=== PATIENT | female | born 1965 | race Caucasian/White ===

== ENCOUNTER → 2016-06-16 | Outpatient (CLI) | payer BC ==
[~2016-06-16] MED LIST: CLR10 PO; DIPH25CA65 PO; FLUT0.15 NAE; PANT40TA PO; TRAM-10 PO; TRAS440I2 IV; WARF5TAB90 PO
[2016-06-16 15:01] VITALS: BP 103/67; PULSE 81; TEMP 36.9; O2SAT 95
--- NOTE | 2016-06-16 16:09 | Radiation Oncology Follow-Up ---
Radiation Oncology Follow-Up Date of Visit Jun 16, 2016. Reason For Visit One-month follow-up and cancer survivorship care plan Radiation Completion Date 05/13/16 Diagnosis (1) Breast cancer Status: Resolved Onset Date: 07/06/2015 Histology Subtype: ductal Stage: lll (A) Permanent Comment: Left breast discomfort Abnormal mammogram revealing left upper outer quadrant masses Status post ultrasound-guided biopsies revealing infiltrating ductal carcinoma upper outer quadrant Positive left axillary lymph node biopsy Estrogen receptor negative, progesterone receptor negative, HER-2/mahogany positive Clinical stage T3 N1M0 by MRI Status post chemotherapy with TCH plus Pertuzumab Ongoing treatment with Herceptin Status post bilateral mastectomies with sentinel lymph node biopsy on the left 12/15/2015 Placement of tissue expanders Stage ypT0 ypN0 M0 Status post completion of radiation therapy 05/13/2016 received 6240 cGy Last Edited By: Jaycee Pardo on May 26, 2016 13:51 History of Present Illness Ms. Saha is a 50 year-old female with a remote family history of breast cancer. The patient's paternal grandmother was diagnosed with bilateral breast cancer treated with bilateral mastectomies and chemotherapy and radiation. Her mother from heart complications and she has 3 sisters 2 surviving without history of left breast cancer. She has noted however a sensation of discomfort in the left chest wall region for several years. Mammogram from 09/02/2011, bilateral screening, showed no mammographic evidence of malignancy. Repeat bilateral screening mammogram on 09/03/2012 also revealed no mammographic evidence of malignancy. On 09/05/2013 bilateral digital screening mammograms were performed. An indeterminant asymmetry was appreciated in the left breast with additional views recommended. A unilateral left digital diagnostic mammogram was performed on 09/12/2013. An oval high density asymmetry was again noted in the left breast at the 1:00 posterior depth that was felt to have decreased in size. A repeat in one year was recommended. The patient states that at this point she was becoming frustrated and delayed her recommended repeat screening mammogram scheduled for August 2014. Ultimately she did agree to proceed with bilateral digital screening mammograms on 06/25/2015. This unfortunately showed a newly visualized 1.0 cm mass in the left upper outer quadrant as well as a possible 0.8 cm mass seen more anteriorly on the cc views. Spot compression views and ultrasound were recommended. On 06/30/2015 patient underwent a unilateral left digital diagnostic mammogram and targeted left breast ultrasound. This showed a 1.9 x 2.3 cm cluster of pleomorphic microcalcifications in the upper outer middle one third of the left breast which were new compared to prior mammograms. The total synthesis Spot compression views demonstrated persistence of a dominant 1.1 cm mass in the left breast 3 o'clock position. Real time ultrasound was performed of the left upper outer quadrant. At the 2 o'clock position 1 cm from the nipple was noted a rounded hypoechoic solid mass measuring 0.8 x 0.9 x 0.9 cm. A second hypoechoic solid mass deep to the first at the 3 o'clock position of the left breast was noted to centimeters in the nipple measuring 1.6 x 0.8 x 1.3 cm. An ill-defined hypoechoic tissue was noted at the 3 o'clock position of the left breast 3 cm from the nipple measuring 1.5 x 3.0 cm. Evaluation of the left axilla revealed an enlarged lymph node with thickened cortex measuring 1.6 cm in length suspicious for metastatic disease. Ultrasound core biopsy was recommended. On 07/06/2015 patient underwent an ultrasound-guided core biopsy of the left breast mass 2 o'clock position, calcifications hypoechoic tissues and abnormal left axillary lymph node. The biopsy of the breast mass at the 2 o'clock position confirmed an infiltrating ductal carcinoma Artem grade 3 of 3 without lymphovascular invasion. Estrogen receptors were negative (0%). Progesterone receptors were negative (0%). HER-2/mahogany overexpression was +3+ (>90%, strong). Biopsy of the adjacent calcifications hypoechoic tissue also revealed infiltrating ductal carcinoma Benld grade 3 with evidence of high-grade DCIS solid with focal noncontributory necrosis. Biopsy of the left axillary lymph node revealed metastatic carcinoma with similar histologic features to that of the core breast biopsy. Case: [id number]. The patient was seen on 07/15/[address] Martha Ashford for surgical evaluation and discussion. Her examination of the left breast revealed a near 3-4 cm mass starting at the 2 o'clock position extending to the 3 o'clock position. This was firm non-fixed with thickening further laterally extending into the axillary tail measuring [address] Ashford that the patient would benefit from neoadjuvant chemotherapy. She recommended additional staging procedures to include a PET/CT scan and bilateral breast MRIs. She discussed possible surgical options and the patient expressed a desire to proceed with bilateral mastectomies at that time. On 07/22/2015 patient underwent a PET/CT scan. This showed no metabolically active pulmonary nodules. A 2.6 x 2.4 cm FDG avid irregular mass was noted in the left breast with biopsy clip present and a maximum SUV of 15.3. Superior to that lesion was a 3.6 x 2.0 cm asymmetric oval mass with SUV max of 2.5. Multiple hypermetabolic left axillary and subpectoral lymph nodes were appreciated with the largest measuring 1.8 x 1.3 cm with the most FDG avid maximum of 15.0 has a biopsy clip next to it. There was no metabolically active hilar and mediastinal adenopathy. Abdomen and pelvis, gastrointestinal system system and musculoskeletal systems were unremarkable. An FDG avid anterior uterine myometrial mass without obvious CT correlate was seen on the unenhanced CT scan. On 07/23/2015 patient underwent bilateral breast MRIs. The right breast was without suspicious abnormalities. The left breast revealed a large area of segmental he does attributed masslike and non-mass like enhancement involving the left lower outer and a lesser degree the left upper outer quadrant extending from approximately 2 to 5 o'clock position. The extent of enhancement measures up to 9.5 cm in AP dimension with the abnormal enhancement extending up to and possibly involving the nipple. The enhancement demonstrates a mixed kinetic pattern including suspicious washout kinetics. The 2 adjacent biopsy markers were identified. There was mild left rest skin thickening mostly involving the inferior breast. Multiple abnormally enlarged lymph nodes are seen within the left axilla consistent with sosa metastasis. No obvious right axillary adenopathy appreciated no abnormal internal mammary lymph nodes are seen. Chest wall structures were negative. The patient was seen by Dr. Cho on 07/24/2014. She agreed with the recommended neoadjuvant chemotherapy consisting of Taxotere, Carboplatin,Pertuzumab and Herceptin.. Patient was set up to see a audio production engineer to evaluate the uterus. The patient had had previous uterine ablations. A mass measuring 3.7 x 3.2 x 3.4 cm was appreciated which had increased in size since previous studies in 2007. Plan repeat scan in 6 months. A bone scan was performed on 2015. This showed no evidence of metastatic disease. The patient has started her systemic chemotherapy and is presently in cycle 2. She did have 1 week of the symptoms but otherwise is tolerating her systemic therapy as anticipated. She is scheduled to see Dr. Tarango today for evaluation and discussion of the role of breast reconstruction following her planned bilateral mastectomy. He will discuss with her the options of tissue expansion versus TRAM flap. We were also asked to see her in referral to discuss with her the potential and likely role of adjuvant radiation following the completion of her chemotherapy and surgery. She continue follow-up with Dr. Cho and underwent systemic chemotherapy. She completed the [facility] treatment with perjeta. She now continues on Herceptin every 3 weeks. She underwent the bilateral mastectomies 12/15/2015. She had a left sentinel lymph node biopsy. This revealed no residual carcinoma. There was no cancer in the 2 lymph nodes that were evaluated. She does have arthralgias in association to Herceptin. She is being evaluated with a bone scan. Following the bilateral mastectomy she had immediate tissue expanders. These have now completely been expanded. There is some mild discomfort in the left side following the expansion. She's noticed no redness or tenderness. She noted no masses or change of the axilla. She's had no swelling of her arm. She is here today for follow-up and CT. She underwent radiation therapy. Treatment was completed 05/13/2016. She received 6240 cGy. Interim History She has been doing well in regards to the irritation of her skin at the end of treatment. This has steadily improved and healed. She's been using vitamin E oil. She unfortunately developed a clot near her port. She is on anticoagulation therapy. She feels this is now getting better regulated. She does have discomfort in her shoulder and arm from the clot. The swelling that she has had is mostly been in the shoulder and upper arm. She has not had lower arm swelling or swelling of her hand. She has been seen and followed up with her plastic surgeon. She is going to be having the tissue expanders removed and placement of permanent implants. She is also going to be having removal of her port. There has been discussion over a more invasive procedure. She is opting for implants. Allergies Coded Allergies: Codeine (Verified Allergy, Severe, chest tightness, 04/26/16) Morphine (Verified Allergy, Intermediate, Chest Tightness , 04/26/16) Home Medications Scheduled Trastuzumab (Herceptin), IV q3 weeks Warfarin Sodium (Coumadin), 5 MG PO DAILY Scheduled PRN Diphenhydramine Hcl (Benadryl Allergy), 25 MG PO UD PRN for ALLERGIC REACTION Loratadine (Claritin), 10 MG PO DAILY PRN for ALLERGIES Tramadol (Ultram), 50 MG PO TID PRN for Pain Review of Systems Gastrointestinal: Symptoms: WNL Oral: Symptoms: No Problems Respiratory: Symptoms: WNL Urinary: Symptoms: WNL Skin: Symptoms: No Problems Breast: Right Upper Arm Measurement: 33.7 Right Mid Arm Measurement: 23.5 Right Wrist Measurement: 15.1 Left Upper Arm Measurement: 34.8 Left Mid Arm Measurement: 22.9 Left Wrist Measurement: 14.7 Arm Dominence: Right Physical Exam Vital Signs Date Time Temp Pulse Resp B/P Pulse Ox O2 Delivery O2 Flow Rate FiO2 06/16/16 15:01 36.9 81 16 103/67 95 Pain: Patient Pain Scale: 0 - 10 Initial Pain Intensity: 0.0 Fatigue: None General Appearance: no apparent distress Eyes: normal inspection, EOMI ENT: normal ENT inspection, hearing grossly normal Neck: no adenopathy Respiratory/Chest: lungs clear, no respiratory distress, no accessory muscle use Breast: Examination of the chest reveals bilateral tissue expanders. On the left there is resolving hyperpigmentation. There is mild dryness of the skin. There are no masses or tenderness no axillary adenopathy. There is no cording in the pectoralis minor area she has good range of motion of the shoulder. There is no axillary adenopathy. She has no skin retractions. The right tissue toy stuffer revealed no masses or tenderness and no axillary adenopathy. Cardiovascular: regular rate, rhythm, no gallop, no murmur Abdomen: non tender, soft Extremities: no pedal edema Neurologic/Psychiatric: no motor/sensory deficits, alert, normal mood/affect Skin: warm/dry Lymphatic: no adenopathy Laboratory Studies Test 03/23/16 19:00 White Blood Count 4.56 K/uL (4.8-10.8) Red Blood Count 3.80 M/uL (4.2-5.4) Hemoglobin 11.3 g/dl (12.0-16.0) Hematocrit 34.5 % (37-47) Mean Corpuscular Volume 90.8 fL (80-100) Mean Corpuscular Hemoglobin 29.7 pg (25-34) Mean Corpuscular Hemoglobin Concent 32.8 g/dl (32-36) Platelet Count 218 K/uL (130-400) Mean Platelet Volume 8.8 fL (7.4-10.4) Neutrophils (%) (Auto) 46.0 % Lymphocytes (%) (Auto) 40.4 % Monocytes (%) (Auto) 10.1 % Eosinophils (%) (Auto) 3.1 % Basophils (%) (Auto) 0.4 % Neutrophils # (Auto) 2.10 K/uL (1.4-6.5) Lymphocytes # (Auto) 1.84 K/uL (1.2-3.4) Monocytes # (Auto) 0.46 K/uL (0.11-0.59) Eosinophils # (Auto) 0.14 K/uL (0-0.5) Basophils # (Auto) 0.02 K/uL (0-0.2) RDW Standard Deviation 42.0 fL (36.4-46.3) RDW Coefficient of Variation 12.5 % (11.5-14.5) Immature Granulocyte % (Auto) 0.0 % Immature Granulocyte # (Auto) 0.00 K/uL (0.00-0.02) Thyroid Stimulating Hormone (TSH) 2.060 uIu/ml (0.300-4.500) Assessment & Plan Plan: Continue regular follow-up with her primary care physician, Dr. Ashford, and Dr. Cho. She has an appointment with the audio production engineer today for regular checkup. She is on anticoagulation for the DVT. Recheck laboratory studies and scanning per Dr. Cho. Today we completed a cancer survivorship care plan. A copy of the document was given to the patient. She was given a cancer survivorship booklet. She'll be following up with the plastic surgeon in regards to placement of the breast implants. We asked her to return to our office in 6 months. She may call if she has any questions or concerns in the interim. Total Time In Follow-Up I spent 20 minutes speaking to the patient and performing examination. I spent 20 minutes reviewing information, preparing the survivorship document, and completing this note. Copy To Osvaldo Romero MD; Martha Ashford MD; Judith Cho MD Problem Qualifiers (1) Breast cancer: Breast location: upper outer quadrant of breast Patient gender: female Laterality: left Qualified Codes: C50.412 - Malignant neoplasm of upper- outer quadrant of left female breast
== END | disposition home or self-care (01) ==
LOC: C.ONC 14:50
PROVIDERS: ATTEND Radiology Radiation Oncology
DX: Z08 Encounter for follow-up examination after completed treatment for malignant neoplasm (principal); Z92.3 Personal history of irradiation; Z85.3 Personal history of malignant neoplasm of breast

== ENCOUNTER → 2016-06-22 | Outpatient (CLI) | payer BC | END | disposition home or self-care (01) | LOC: C.PAPS 10:13 | PROVIDERS: ATTEND Obstetrics & Gynecology | DX: Z01.419 Encounter for gynecological examination (general) (routine) without abnormal findings (principal); N95.2 Postmenopausal atrophic vaginitis ==

== ENCOUNTER 2016-11-14 13:03 | Emergency (ER) | payer BC ==
[~2016-11-14] VITALS: Ht 154.9 cm; Wt 70.0 kg
[~2016-11-14 13:03] MED LIST changes: -FLUT0.15 NAE; -PANT40TA PO
[2016-11-14] MEDS ORDERED: ONDANSETRON INJ 2 MG/ML 2 ML VIAL IV STA (14:05)
[2016-11-14] MEDS ORDERED: SODIUM CHLORIDE 0.9% 1000ML 1,000 ML IV ONE (14:05)
[2016-11-14] MEDS ORDERED: PIPERACILLIN/TAZOBACTAM 4.5 GM/100ML D5W IV STA (14:05)
[2016-11-14] MEDS ORDERED: VANCOMYCIN 1GM/270ML NSS IV STA (14:05)
[2016-11-14] MEDS ORDERED: KETOROLAC TROMETHAMINE 30 MG/ML VIAL IV STA ×2 (14:05→20:43)
[2016-11-14] MEDS ORDERED: ACETAMINOPHEN 500 MG TAB PO STA (14:05)
[2016-11-14 14:15] VITALS: O2SAT 96
[2016-11-14 14:22] LABS: BASO % 0.1 %; BASO ABS # 0.01 K/uL (0-0.2); COMPLETE YES; HEMATOCRIT 37.3 % (37-47); IG% 0.3 %; LYMPH % 3.2 %; LYMPH ABS # 0.36 K/uL (1.2-3.4); MEAN CORPUSCULAR HEMOGLOBIN 30.5 pg (25-34); MEAN CORPUSCULAR HGB CONC 33.5 g/dl (32-36); MEAN PLATELET VOLUME 8.9 fL (7.4-10.4); MONO % 6.1 %; NEUT % 90.3 %; PLATELET COUNT 201 K/uL (130-400); WHITE BLOOD COUNT 11.23 K/uL (4.8-10.8)
[2016-11-14 14:33] LABS: PROTHROMBIN TIME (PATIENT) 10.8 SECONDS (9.0-12.0)
[2016-11-14 14:38] LABS: BUN/CREATININE RATIO 21.2 (10-20); CALCIUM 8.8 mg/dl (8.5-10.1); CREATININE 0.66 mg/dl (0.60-1.20); POTASSIUM 2.9 mmol/L (3.5-5.1)
[2016-11-14 14:41] LABS: ALB/GLOB RATIO 1.2 (0.9-2)
--- NOTE | 2016-11-14 14:57 | DIAGNOSTIC IMAGING REPORT ---
CHEST ONE VIEW PORTABLE CLINICAL HISTORY: Sepsis dyspnea COMPARISON STUDY: No previous studies for comparison. FINDINGS: The bones soft tissues and hemidiaphragms are normal. The cardiomediastinal silhouette is normal. The lungs are clear. The pulmonary vasculature is normal. IMPRESSION: Negative chest. Electronically signed by: Pako Frankel M.D. 11/14/2016 2:55 PM Dictated Date/Time: 11/14/2016 2:50 PM
[2016-11-14] MEDS ORDERED: POTASSIUM CHLORIDE 10 MEQ / 100ML WTR IV STA (15:22)
[2016-11-14] MEDS ORDERED: PANT40TA PO (15:23)
[2016-11-14 15:45] LABS: URINE APPEARANCE CLEAR (CLEAR); URINE BILIRUBIN NEG (NEG); URINE COLOR YELLOW; URINE NITRITE NEG (NEG); URINE PH 6.5 (4.5-7.5); UROBILINOGEN NEG (NEG)
[2016-11-14] MEDS ORDERED: MAGNESIUM SULFATE 1GM / D5W 1 GM BAG IV STA (15:46)
[2016-11-14 15:56] LABS: MANUAL MICROSCOPIC REQUIRED? NO; REVIEW REQ? NO
[2016-11-14 16:02] VITALS: O2SAT 97; Ht 154.9 cm; Wt 70.0 kg
[2016-11-14] MEDS ORDERED: VANCOMYCIN CONSULT ACTIVE PRN (16:09)
[2016-11-14] MEDS ORDERED: POTASSIUM CHLORIDE 20 MEQ TABCR PO ONE (16:15)
[2016-11-14] MEDS ORDERED: NSS + 20MEQ KCL 1000ML 1,000 ML IV SCH (16:15)
[2016-11-14] MEDS ORDERED: ENOXAPARIN 40 MG/0.4 ML SYR SQ SCH (16:15)
[2016-11-14] MEDS ORDERED: PIPERACILL/TAZOBAC CONSULT ACTIVE PRN (16:15)
[2016-11-14] MEDS ORDERED: TRAMADOL HCL 50 MG TAB PO PRN (16:15)
[2016-11-14] MEDS ORDERED: ACETAMINOPHEN 325 MG TAB PO PRN (16:15)
[2016-11-14] MEDS ORDERED: ONDANSETRON INJ 2 MG/ML 2 ML VIAL IV PRN (16:15)
--- NOTE | 2016-11-14 17:11 | History and Physical ---
History & Physical Date & Time of Service: Nov 14, 2016 ~ 15:45 Chief Complaint: Headache, Body Ache, Vomiting, Fever Primary Care Physician: Osvaldo Romero MD History of Present Illness 50 year old female who presents to the ER with body aches, nausea, vomiting, and fever. Patient reports her symptoms started this morning. When she woke up she noted she ached all over. She took a Tramadol without any improvement. She also then developed nausea and vomiting. She denies hematemesis or coffee ground emesis. She denies abdominal pain or diarrhea. Patient has history of breast cancer s/p mastectomy with reconstruction done in July 2016. Patient reports that over the past couple of weeks she has noted increased redness over the scar line on the left breast. Breast was also more tender today. Patient did not take her temperature at home however felt as though she had a fever. She denies chest pain and shortness of breath. No lightheadedness, dizziness, diaphoresis, or syncopal events. She denies any urinary symptoms. In the ER, patient was febrile at 38.6 and HR was in the 120s. BP was borderline low systolically in the 90s. HR and BP improved with IVF. WBC 11K. Left breast exam consistent with cellulitis. Patient was given IVF, Tylenol, Toradol, Mg+ and K+ replacement, Vanco, and Zosyn. Past Medical/Surgical History Medical Problems: (1) Breast cancer Permanent Comment: Left breast discomfort Abnormal mammogram revealing left upper outer quadrant masses Status post ultrasound-guided biopsies revealing infiltrating ductal carcinoma upper outer quadrant Positive left axillary lymph node biopsy Estrogen receptor negative, progesterone receptor negative, HER-2/mahogany positive Clinical stage T3 N1M0 by MRI Status post chemotherapy with TCH plus Pertuzumab Ongoing treatment with Herceptin Status post bilateral mastectomies with sentinel lymph node biopsy on the left 12/15/2015 Placement of tissue expanders Stage ypT0 ypN0 M0 Status post completion of radiation therapy 05/13/2016 received 6240 cGy Status: Chronic (2) DVT (deep venous thrombosis) Permanent Comment: completed Coumadin therapy Status: Chronic (3) GERD (gastroesophageal reflux disease) Status: Chronic Surgical Problems: (1) H/O bilateral mastectomy Status: Chronic (2) Hx of cholecystectomy Status: Chronic (3) Hx of tubal ligation Status: Chronic Family History Diabetes mellitus FATHER MOTHER Social History Smoking Status: Never Smoker Alcohol Use: occasionally Marital Status: Immunizations History of Influenza Vaccine: Yes Influenza Vaccine Date: Apr 06, 2016 History of Tetanus Vaccine?: Yes Tetanus Immunization Date: Dec 04, 2013 Multi-Drug Resistant Organisms History of MDRO: No Allergies Coded Allergies: Codeine (Verified Allergy, Severe, chest tightness, 11/14/16) Morphine (Verified Allergy, Intermediate, Chest Tightness , 11/14/16) Home Medications Scheduled Pantoprazole (Protonix), 40 MG PO DAILY Scheduled PRN Diphenhydramine Hcl (Benadryl Allergy), 25 MG PO UD PRN for ALLERGIC REACTION Loratadine (Claritin), 10 MG PO DAILY PRN for ALLERGIES Tramadol (Ultram), 50 MG PO TID PRN for Pain Review of Systems ROS per HPI, all other systems reviewed and negative Physical Exam Vital Signs Date Time Temp Pulse Resp B/P (MAP) Pulse Ox O2 Delivery O2 Flow Rate FiO2 11/14/16 16:37 37.4 85 18 94/50 95 Room Air 11/14/16 16:02 97 Room Air 11/14/16 14:41 96 20 108/67 97 Room Air 11/14/16 14:15 96 Room Air 11/14/16 13:49 106 11/14/16 13:08 38.6 121 20 91/59 97 Room Air General Appearance: no apparent distress Head: normocephalic Eyes: normal inspection ENT: hearing grossly normal Neck: supple, no JVD Respiratory/Chest: lungs clear, normal breath sounds, no respiratory distress Cardiovascular: regular rate, rhythm, no edema, normal peripheral pulses Abdomen/GI: normal bowel sounds, non tender, soft Extremities/Musculoskelatal: normal inspection, no calf tenderness Neurologic/Psych: no motor/sensory deficits, alert, normal mood/affect, oriented x 3 Skin: + pertinent finding (mild erythema noted over left breast scar line, warm and tender to touch, no drainage noted ) Diagnostics Laboratory Results Results Past 24 Hours Test 11/14/16 00:00 11/14/16 13:50 11/14/16 13:59 Range/Units Urine Color YELLOW Urine Appearance CLEAR CLEAR Urine pH 6.5 4.5-7.5 Urine Specific [place] 1.010 1.000-1.030 Urine Protein NEG NEG Urine Glucose (UA) NEG NEG Urine Ketones NEG NEG Urine Occult Blood NEG NEG Urine Nitrite NEG NEG Urine Bilirubin NEG NEG Urine Urobilinogen NEG NEG Urine Leukocyte Esterase NEG NEG White Blood Count 11.23 4.8-10.8 K/uL Red Blood Count 4.10 4.2-5.4 M/uL Hemoglobin 12.5 12.0-16.0 g/dL Hematocrit 37.3 37-47 % Mean Corpuscular Volume 91.0 80-100 fL Mean Corpuscular Hemoglobin 30.5 25-34 pg Mean Corpuscular Hemoglobin Concent 33.5 32-36 g/dl Platelet Count 201 130-400 K/uL Mean Platelet Volume 8.9 7.4-10.4 fL Neutrophils (%) (Auto) 90.3 % Lymphocytes (%) (Auto) 3.2 % Monocytes (%) (Auto) 6.1 % Eosinophils (%) (Auto) 0.0 % Basophils (%) (Auto) 0.1 % Neutrophils # (Auto) 10.14 1.4-6.5 K/uL Lymphocytes # (Auto) 0.36 1.2-3.4 K/uL Monocytes # (Auto) 0.69 0.11-0.59 K/uL Eosinophils # (Auto) 0.00 0-0.5 K/uL Basophils # (Auto) 0.01 0-0.2 K/uL RDW Standard Deviation 43.1 36.4-46.3 fL RDW Coefficient of Variation 13.0 11.5-14.5 % Immature Granulocyte % (Auto) 0.3 % Immature Granulocyte # (Auto) 0.03 0.00-0.02 K/uL Prothrombin Time 10.8 9.0-12.0 SECONDS Prothromb Time International Ratio 1.0 0.9-1.1 Activated Partial Thromboplast Time 25.4 21.0-31.0 SECONDS Partial Thromboplastin Ratio 1.0 Sodium Level 141 136-145 mmol/L Potassium Level 2.9 3.5-5.1 mmol/L Chloride Level 105 98-107 mmol/L Carbon Dioxide Level 27 21-32 mmol/L Anion Gap 9.0 3-11 mmol/L Blood Urea Nitrogen 14 7-18 mg/dl Creatinine 0.66 0.60-1.20 mg/dl Est Creatinine Clear Calc Drug Dose 93.2 ml/min Estimated GFR () 121.1 Estimated GFR (Non- 104.5 BUN/Creatinine Ratio 21.2 10-20 Random Glucose 94 70-99 mg/dl Calcium Level 8.8 8.5-10.1 mg/dl Magnesium Level 1.4 1.8-2.4 mg/dl Total Bilirubin 0.4 0.2-1 mg/dl Aspartate Amino Transf (AST/SGOT) 15 15-37 U/L Alanine Aminotransferase (ALT/SGPT) 20 12-78 U/L Alkaline Phosphatase 74 45-117 U/L Total Protein 6.8 6.4-8.2 gm/dl Albumin 3.7 3.4-5.0 gm/dl Globulin 3.1 2.5-4.0 gm/dl Albumin/Globulin Ratio 1.2 0.9-2 Bedside Lactic Acid Venous 0.82 0.90-1.70 mmol/L Microbiology Results 11/14/16 Blood Culture, Received Pending 11/14/16 Blood Culture, Received Pending 11/14/16 Urine Culture, Received Pending Diagnostic Radiology CXR IMPRESSION: Negative chest. Impression Assessment and Plan SEPSIS DUE TO LEFT BREAST CELLULITIS - admit to med/surg - patient presenting with body aches, N/V, and increased left breast tenderness and redness; hx of BL mastectomy with reconstruction done July 2016 - presenting with tachycardia and fever, BP borderline, normal lactic acid, WBC 11K - HR and BP improved with IVF - suspect some component hypovolemia from N/V contributing to low BP - s/p Zosyn and Vanco in the ED - will continue with - no drainage to culture, blood cultures obtained - will check US to evaluate for abscess NAUSEA, VOMITING - likely due to underlying infection - no abdominal pain - patient reports improving since arriving to the ER HYPOKALEMIA, HYPOMAGNESIA - due to GI loss from vomiting - replace, follow up labs in AM GERD - continue PPI DVT PROPHYLAXIS - SQ Lovenox DISPO - In my clinical judgment this beneficiary meets acute admission criteria, established by [facility], that includes being hospitalized through two midnights. ATTENDING ADDENDUM care coordinated with HELEN Olsen please refer to her notes for full details, I agree with her notes patient seen and examined, records reviewed by myself as well on exam, patient seen resting in bed, her Juan was at the bedside states she feels improved compared to admission nausea, body aches has resolved still has some pain on the left breast no chest pain, dyspnea, palpitations, dizziness no other symptoms VS noted and reviewed oriented x 3 , not in distress, speaks in sentences with no effort nor accessory muscle use normal rate, regular rhythm, no murmurs clear breath sounds bilaterally left breast: (+) edema, warmth, mild-mod tenderness mostly surrounding the surgical incision site, no drainage/fluctuant mass right breast: unremarkable abdomen non distended, soft, nontender no bipedal edema, erythema, warmth no neuro deficits WBC 11.23 K 2.9 Mg 1.4 ASSESSMENT/PLAN> SEPSIS, SECONDARY TO LEFT BREAST CELLULITIS history of bilateral breast reconstructive surgery -- ff up cultures Breast US ordered to r/o Abscess -- empiric Vancomycin and Zosyn IV IV fluids consult ID HYPOKALEMIA. HYPOMAGNESEMIA -- from emesis -- repleted -- recheck in AM other diagnoses and plan of care as per HELEN Olsen's notes Ethan Garces MD Advanced Directives Existing Living Will: No Existing Power of Reed Polisher: No VTE Prophylaxis VTE Risk Assessment Done? Y/N: Yes Risk Level: Moderate
--- NOTE | 2016-11-14 17:29 | DIAGNOSTIC IMAGING REPORT ---
LEFT BREAST ULTRASONOGRAPHY CLINICAL HISTORY: Left breast pain, headache, bodyaches, vomiting, fever. Possible breast abscess. Breast carcinoma with mastectomy and reconstruction. COMPARISON STUDY: No previous studies for comparison. FINDINGS: There is a left breast implant. There is edema within the soft tissues of the lateral inferior breast surrounding the implant. There are no focal fluid collections to indicate an abscess. IMPRESSION: Postsurgical change. Left breast edema. No evidence of abscess. Electronically signed by: Ron Hong M.D. 11/14/2016 5:27 PM Dictated Date/Time: 11/14/2016 5:26 PM
[2016-11-14] MEDS ORDERED: POTASSIUM CHLORIDE 10 MEQ / 100ML WTR IV ONE (17:38)
--- NOTE | 2016-11-14 17:46 | EMERGENCY ROOM VISIT NOTE ---
History Report prepared by Rajeev: Jose Hernandez Under the Supervision of: Dr. Luis M Rm M.D. First contact with patient: 13:58 Chief Complaint: FEVER Stated Complaint: HEADACHE, BODY ACHE, VOMITING, FEVER History of Present Illness The patient is a 50 year old female who presents to the Emergency Room with complaints of a persistent fever. She also complains of body aches, headache, nausea, and vomiting. She states that she woke up this morning with her symptoms. The patient states that her symptoms worsened throughout the day today. She notes that she took Tramadol for her aches, but has seen no relief. She is prescribed Tramadol for chronic pain. She states that she experienced some chronic pain yesterday, but none of her symptoms of illness. The patient notes that she has also noticed some redness around her left breast recently. She has a history of a complete left sided mastectomy, and had a reconstruction of the same breast about three months ago. She has a history of breast cancer and states that she received radiation and chemotherapy treatments prior to her mastectomy. The patient denies any cough, or sore throat. She denies any recent falls or trauma. Source of History: patient Onset: This morning Quality: other (fever) Timing: other (persistent) Associated Symptoms: + headache, + nausea, + vomiting, No sorethroat, No cough Note: The patient also complains of body aches. Review of Systems See HPI for pertinent positives & negatives. A total of 10 systems reviewed and were otherwise negative. Past Medical & Surgical Medical Problems: (1) Breast cancer (2) DVT (deep venous thrombosis) (3) GERD (gastroesophageal reflux disease) Surgical Problems: (1) H/O bilateral mastectomy (2) Hx of cholecystectomy (3) Hx of tubal ligation Family History No pertinent family history stated. Social History Smoking Status: Never Smoker Marital Status: Housing Status: lives with family Current/Historical Medications Scheduled Pantoprazole (Protonix), 40 MG PO DAILY Scheduled PRN Diphenhydramine Hcl (Benadryl Allergy), 25 MG PO UD PRN for ALLERGIC REACTION Loratadine (Claritin), 10 MG PO DAILY PRN for ALLERGIES Tramadol (Ultram), 50 MG PO TID PRN for Pain Allergies Coded Allergies: Codeine (Verified Allergy, Severe, chest tightness, 11/14/16) Morphine (Verified Allergy, Intermediate, Chest Tightness , 11/14/16) Physical Exam Vital Signs Date Time Temp Pulse Resp B/P (MAP) Pulse Ox O2 Delivery O2 Flow Rate FiO2 11/14/16 19:24 79 20 90/55 99 Room Air 11/14/16 19:00 81 20 88/55 98 Room Air 11/14/16 17:53 37.1 86 16 92/50 95 Room Air 11/14/16 16:37 37.4 85 18 94/50 95 Room Air 11/14/16 16:02 97 Room Air 11/14/16 14:41 96 20 108/67 97 Room Air 11/14/16 14:15 96 Room Air 11/14/16 13:49 106 11/14/16 13:08 38.6 121 20 91/59 97 Room Air Physical Exam GENERAL: Patient is in no acute distress. HEENT: No acute trauma, normocephalic atraumatic, mucous membranes moist, no nasal congestion, no scleral icterus. NECK: No stridor, no adenopathy, no meningismus, trachea is midline. LUNGS: Clear to auscultation bilaterally, no wheeze, no rhonchi, breath sounds equal. HEART: Tachycardic and regular with no murmurs. CHEST: Left breast is warm and erythematous, especially at the healing incision site. Area is somewhat tender to palpation. ABDOMEN: Soft, nontender, bowel sounds positive, no hernias, no peritonitis. EXTREMITIES: No cyanosis or edema, full range of motion of all the joints without pain or difficulty, no signs for acute trauma. NEUROLOGIC: Oriented x 3, no acute motor or sensory deficits, no focal weakness. SKIN: No rash, no jaundice, no diaphoresis. Medical Decision & Procedures ER Provider Diagnostic Interpretation: X-ray results as stated below per interpretation by me and the radiologist: CHEST ONE VIEW PORTABLE FINDINGS: The bones soft tissues and hemidiaphragms are normal. The cardiomediastinal silhouette is normal. The lungs are clear. The pulmonary vasculature is normal. IMPRESSION: Negative chest. Electronically signed by: Pako Frankel M.D. Laboratory Results 11/14/16 13:50 Red Blood Count 4.10, Mean Corpuscular Volume 91.0, Mean Corpuscular Hemoglobin 30.5, Mean Corpuscular Hemoglobin Concent 33.5, Mean Platelet Volume 8.9, Neutrophils (%) (Auto) 90.3, Lymphocytes (%) (Auto) 3.2, Monocytes (%) (Auto) 6.1, Eosinophils (%) (Auto) 0.0, Basophils (%) (Auto) 0.1, Neutrophils # (Auto) 10.14, Lymphocytes # (Auto) 0.36, Monocytes # (Auto) 0.69, Eosinophils # (Auto) 0.00, Basophils # (Auto) 0.01 11/14/16 13:50 Test 11/14/16 00:00 11/14/16 13:50 11/14/16 13:59 Urine Color YELLOW Urine Appearance CLEAR (CLEAR) Urine pH 6.5 (4.5-7.5) Urine Specific Whipple 1.010 (1.000-1.030) Urine Protein NEG (NEG) Urine Glucose (UA) NEG (NEG) Urine Ketones NEG (NEG) Urine Occult Blood NEG (NEG) Urine Nitrite NEG (NEG) Urine Bilirubin NEG (NEG) Urine Urobilinogen NEG (NEG) Urine Leukocyte Esterase NEG (NEG) White Blood Count 11.23 K/uL (4.8-10.8) Red Blood Count 4.10 M/uL (4.2-5.4) Hemoglobin 12.5 g/dL (12.0-16.0) Hematocrit 37.3 % (37-47) Mean Corpuscular Volume 91.0 fL (80-100) Mean Corpuscular Hemoglobin 30.5 pg (25-34) Mean Corpuscular Hemoglobin Concent 33.5 g/dl (32-36) Platelet Count 201 K/uL (130-400) Mean Platelet Volume 8.9 fL (7.4-10.4) Neutrophils (%) (Auto) 90.3 % Lymphocytes (%) (Auto) 3.2 % Monocytes (%) (Auto) 6.1 % Eosinophils (%) (Auto) 0.0 % Basophils (%) (Auto) 0.1 % Neutrophils # (Auto) 10.14 K/uL (1.4-6.5) Lymphocytes # (Auto) 0.36 K/uL (1.2-3.4) Monocytes # (Auto) 0.69 K/uL (0.11-0.59) Eosinophils # (Auto) 0.00 K/uL (0-0.5) Basophils # (Auto) 0.01 K/uL (0-0.2) RDW Standard Deviation 43.1 fL (36.4-46.3) RDW Coefficient of Variation 13.0 % (11.5-14.5) Immature Granulocyte % (Auto) 0.3 % Immature Granulocyte # (Auto) 0.03 K/uL (0.00-0.02) Prothrombin Time 10.8 SECONDS (9.0-12.0) Prothromb Time International Ratio 1.0 (0.9-1.1) Activated Partial Thromboplast Time 25.4 SECONDS (21.0-31.0) Partial Thromboplastin Ratio 1.0 Anion Gap 9.0 mmol/L (3-11) Est Creatinine Clear Calc Drug Dose 93.2 ml/min Estimated GFR () 121.1 Estimated GFR (Non- 104.5 BUN/Creatinine Ratio 21.2 (10-20) Calcium Level 8.8 mg/dl (8.5-10.1) Magnesium Level 1.4 mg/dl (1.8-2.4) Total Bilirubin 0.4 mg/dl (0.2-1) Aspartate Amino Transf (AST/SGOT) 15 U/L (15-37) Alanine Aminotransferase (ALT/SGPT) 20 U/L (12-78) Alkaline Phosphatase 74 U/L (45-117) Total Protein 6.8 gm/dl (6.4-8.2) Albumin 3.7 gm/dl (3.4-5.0) Globulin 3.1 gm/dl (2.5-4.0) Albumin/Globulin Ratio 1.2 (0.9-2) Bedside Lactic Acid Venous 0.82 mmol/L (0.90-1.70) Laboratory results reviewed by me. Medications Administered Medications (Trade) Dose Ordered Sig/Norberto Route Start Time Stop Time Status Last Admin Dose Admin Sodium Chloride 1,000 ml @ 999 mls/hr Q1H1M ONCE IV 11/14/16 14:05 11/14/16 15:09 DC 11/14/16 14:05 999 MLS/HR Piperacillin Sod/ Tazobactam Sod (Zosyn Iv) 4.5 gm ONE STAT IV 11/14/16 14:05 11/14/16 14:08 DC 11/14/16 14:28 4.5 GM Vancomycin HCl (Vancomycin 1gm/ 270ml Nss) 1 gm ONE STAT IV 11/14/16 14:05 11/14/16 14:08 DC 11/14/16 14:28 1 GM Acetaminophen (Tylenol Tab) 1,000 mg NOW STAT PO 11/14/16 14:05 11/14/16 14:08 DC 11/14/16 14:27 1,000 MG Ondansetron HCl (Zofran Inj) 4 mg NOW STAT IV 11/14/16 14:05 11/14/16 14:08 DC 11/14/16 14:27 4 MG Ketorolac Tromethamine (Toradol Inj) 30 mg NOW STAT IV 11/14/16 14:05 11/14/16 14:08 DC 11/14/16 14:28 30 MG Potassium Chloride (Kcl 10 Meq / Wtr) 10 meq NOW STAT IV 11/14/16 15:22 11/14/16 15:23 DC 11/14/16 17:48 10 MEQ Magnesium Sulfate (Magnesium Sulfate) 2 gm NOW STAT IV 11/14/16 15:46 11/14/16 15:47 DC 11/14/16 17:48 2 GM Sodium Chloride 500 ml @ 999 mls/hr Q31M STAT IV 11/14/16 18:39 11/14/16 19:09 DC 11/14/16 18:39 999 MLS/HR ED Course 1400: The patient was evaluated in room B4B. A complete history and physical exam was performed. 1405: Ordered Toradol Inj 30 mg IV, Zofran Inj 4 mg IV, Tylenol Tab 1000 mg PO, Vancomycin 1 gm/270 mL NSS IV, Zosyn 4.5 gm IV, Sodium Chloride 1000 ml @ 999 mls/hr IV. 1522: Ordered KCl 10 meq / Wtr IV. 1525: Upon reexamination the patient is resting. I discussed results and treatment plan with the patient. She verbalizes agreement and understanding. The patient will be evaluated for further management. 1835: I spoke with Dr. Romeo of the [facility] ED. The patient will be transferred to the [facility] ED by ALS. Medical Decision The patient is a 50 year old female who presents to the ED with complaints of fever with hypotension. Differential diagnoses considered include sepsis, bacteremia, cellulitis, pneumonia, UTI, pyelonephritis, electrolyte imbalance, and viral illness. Blood Pressure Screening: Patient was found to have normal blood pressure on screening and does not require follow-up. Medication Reconciliation: I attest that I have personally reviewed the patient' s current medication list. There is a mild leukocytosis which would be consistent with infection. No concerning anemia. Lactic acid level is not elevated making severe sepsis less likely. Renal panel testing shows some hypokalemia and hypomagnesemia. No kidney failure. No hepatitis. Urinalysis does not show infection. Chest x- ray is clear, there is no pneumonia. On exam, there was no evidence for a lower extremity cellulitis. Blood cultures are pending. There was no coagulopathy. The patient presents with fever, left breast pain and redness. She appears to have sepsis from a left breast cellulitis. The patient received IV saline, IV Toradol, IV Zofran, IV Zosyn and IV vancomycin. She received several more boluses of IV saline. Patient was given oral Tylenol. She received IV magnesium and IV potassium. The patient was in need of hospitalization. I did speak to the on-call hospitalist, transfer was recommended. I spoke with the [facility] ER physician who did accept the patient in transfer. The patient states that she feels markedly better from the treatment she received. She is resting comfortably. Consults Time Called: 1523 Consulting Physician: Loreto Aguilarthais Returned Call: [phone] Discussed the patient's case. The patient will be evaluated for further management. Additional Consults: Time Called: 1753 Consulted Physician: Dr. Ousmane Little ED Returned Call: [phone] Additional Comments: Discussed the patient's case. The patient will be transferred to the [facility] ED by ALS. Impression Primary Impression: Sepsis Additional Impressions: Cellulitis Hypotension Critical Care I have personally spent greater than 30 minutes of critical care time in the direct management of this patient. This includes bedside care, interpretation of diagnostic studies, and testing, discussion with consultants, patient, and family members, and other required patient management activities. This 30 minutes is in excess of all separately billable procedures. Scribe Attestation The scribe's documentation has been prepared under my direction and personally reviewed by me in its entirety. I confirm that the note above accurately reflects all work, treatment, procedures, and medical decision making performed by me. Departure Information Dispostion Transfer Acute Care Facility ([facility] ED by ALS) Patient Instructions My [facility] Problem Qualifiers
[2016-11-14 17:53] VITALS: TEMP 37.1
--- NOTE | 2016-11-14 18:24 | Progress Note ---
Progress Note Date of Service Nov 14, 2016. Progress Note called [facility] Plastic Surgery Dr. Michael, who performed patient's change to gel implants last July 2015, is on vacation spoke with Dr. Ortega, puff iron operator, discussed the case he recommend that patient be transferred to [facility] patient re-evaluated she appears comfortable, sleeping discussed with patient re: transfer to [facility] per Plastic Surgery recommendations she is agreeable and comfortable with the transfer discussed the case with Dr. Rm also requested rehabilitation case coordinator to discuss logistics of transfer with patient Ethan Garces MD
[2016-11-14] MEDS ORDERED: SODIUM CHLORIDE 0.9% 500ML 500 ML IV STA ×2 (18:39→20:21)
[2016-11-14 20:39] VITALS: BP 92/50; PULSE 78; O2SAT 98
[2016-11-14] MEDS ORDERED: KETOROLAC TROMETHAMINE 30 MG/ML VIAL ONE (20:45)
[2016-11-15] MEDS ORDERED: PANTOprazole SOD 40 MG TAB PO SCH (09:00)
[2016-12-15] MEDS ORDERED: FLUT0.15 NAE (14:21)
== END 2016-11-14 19:00 | disposition short-term general hospital (02) ==
LOC: C.EDB 13:04 → CANRESERV 17:25 → ENRESERV 17:25 → CANBEDREQ 18:24 → C.EDB 19:00
DX: A41.9 Sepsis, unspecified organism (principal); N61.0 Mastitis without abscess; I95.9 Hypotension, unspecified; Z85.3 Personal history of malignant neoplasm of breast; Z86.718 Personal history of other venous thrombosis and embolism; K21.9 Gastro-esophageal reflux disease without esophagitis; Z90.13 Acquired absence of bilateral breasts and nipples; Z83.3 Family history of diabetes mellitus; Z79.899 Other long term (current) drug therapy

== ENCOUNTER → 2016-12-09 | Outpatient (CLI) | payer BC ==
[~2016-12-09] MED LIST changes: +PANT40TA PO; -TRAS440I2 IV; -WARF5TAB90 PO
--- NOTE | 2016-12-09 17:35 | DIAGNOSTIC IMAGING REPORT ---
VENOUS DOPPLER UPR EXT UNI HISTORY: Venous Doppler right arm R UPPER EXTREMITY SWELLING COMPARISON STUDY: 04/26/2016 FINDINGS: The internal jugular vein is patent. There is normal flow within the subclavian vein. There is normal flow and compressibility within the left axillary, basilic, brachial, radial, ulnar, and visualized cephalic veins. Small focus of superficial thrombus within the right cephalic vein at the level of the wrist. IMPRESSION: No DVT within the upper extremity. Focal superficial thrombophlebitis within the cephalic vein at the right wrist The above report was generated using voice recognition software. It may contain grammatical, syntax or spelling errors. Electronically signed by: Pako Frankel M.D. 12/09/2016 5:33 PM Dictated Date/Time: 12/09/2016 5:32 PM
== END | disposition home or self-care (01) ==
LOC: C.ULTR 16:46
PROVIDERS: ATTEND Internal Medicine Hematology & Oncology
DX: C50.412 Malignant neoplasm of upper-outer quadrant of left female breast (principal); M79.601 Pain in right arm; Z86.718 Personal history of other venous thrombosis and embolism; I80.8 Phlebitis and thrombophlebitis of other sites

== ENCOUNTER → 2016-12-15 | Outpatient (CLI) | payer BC ==
[~2016-12-15] MED LIST changes: +FLUT0.15 NAE
[2016-12-15 13:43] VITALS: BP 113/76; PULSE 76; TEMP 36.9; O2SAT 97
--- NOTE | 2016-12-15 16:30 | Radiation Oncology Follow-Up ---
Radiation Oncology Follow-Up Date of Visit Dec 15, 2016. Reason For Visit 6 month follow-up Radiation Completion Date 05/13/16 Diagnosis (1) Breast cancer Status: Resolved Onset Date: 07/06/2015 Histology Subtype: ductal Stage: lll (A) Permanent Comment: Left breast discomfort Abnormal mammogram revealing left upper outer quadrant masses Status post ultrasound-guided biopsies revealing infiltrating ductal carcinoma upper outer quadrant Positive left axillary lymph node biopsy Estrogen receptor negative, progesterone receptor negative, HER-2/mahogany positive Clinical stage T3 N1M0 by MRI Status post chemotherapy with TCH plus Pertuzumab Ongoing treatment with Herceptin Status post bilateral mastectomies with sentinel lymph node biopsy on the left 12/15/2015 Placement of tissue expanders Stage ypT0 ypN0 M0 Status post completion of radiation therapy 05/13/2016 received 6240 cGy Last Edited By: Jaycee Pardo on May 26, 2016 13:51 History of Present Illness Ms. Saha is a 51 year-old female with a remote family history of breast cancer. The patient's paternal grandmother was diagnosed with bilateral breast cancer treated with bilateral mastectomies and chemotherapy and radiation. Her mother from heart complications and she has 3 sisters 2 surviving without history of left breast cancer. She has noted however a sensation of discomfort in the left chest wall region for several years. Mammogram from 09/02/2011, bilateral screening, showed no mammographic evidence of malignancy. Repeat bilateral screening mammogram on 09/03/2012 also revealed no mammographic evidence of malignancy. On 09/05/2013 bilateral digital screening mammograms were performed. An indeterminant asymmetry was appreciated in the left breast with additional views recommended. A unilateral left digital diagnostic mammogram was performed on 09/12/2013. An oval high density asymmetry was again noted in the left breast at the 1:00 posterior depth that was felt to have decreased in size. A repeat in one year was recommended. The patient states that at this point she was becoming frustrated and delayed her recommended repeat screening mammogram scheduled for August 2014. Ultimately she did agree to proceed with bilateral digital screening mammograms on 06/25/2015. This unfortunately showed a newly visualized 1.0 cm mass in the left upper outer quadrant as well as a possible 0.8 cm mass seen more anteriorly on the cc views. Spot compression views and ultrasound were recommended. On 06/30/2015 patient underwent a unilateral left digital diagnostic mammogram and targeted left breast ultrasound. This showed a 1.9 x 2.3 cm cluster of pleomorphic microcalcifications in the upper outer middle one third of the left breast which were new compared to prior mammograms. The total synthesis Spot compression views demonstrated persistence of a dominant 1.1 cm mass in the left breast 3 o'clock position. Real time ultrasound was performed of the left upper outer quadrant. At the 2 o'clock position 1 cm from the nipple was noted a rounded hypoechoic solid mass measuring 0.8 x 0.9 x 0.9 cm. A second hypoechoic solid mass deep to the first at the 3 o'clock position of the left breast was noted to centimeters in the nipple measuring 1.6 x 0.8 x 1.3 cm. An ill-defined hypoechoic tissue was noted at the 3 o'clock position of the left breast 3 cm from the nipple measuring 1.5 x 3.0 cm. Evaluation of the left axilla revealed an enlarged lymph node with thickened cortex measuring 1.6 cm in length suspicious for metastatic disease. Ultrasound core biopsy was recommended. On 07/06/2015 patient underwent an ultrasound-guided core biopsy of the left breast mass 2 o'clock position, calcifications hypoechoic tissues and abnormal left axillary lymph node. The biopsy of the breast mass at the 2 o'clock position confirmed an infiltrating ductal carcinoma [place] grade 3 of 3 without lymphovascular invasion. Estrogen receptors were negative (0%). Progesterone receptors were negative (0%). HER-2/mahogany overexpression was +3+ (>90%, strong). Biopsy of the adjacent calcifications hypoechoic tissue also revealed infiltrating ductal carcinoma [place] grade 3 with evidence of high-grade DCIS solid with focal noncontributory necrosis. Biopsy of the left axillary lymph node revealed metastatic carcinoma with similar histologic features to that of the core breast biopsy. Case: [id number]. The patient was seen on 07/15/[address] Martha Ashford for surgical evaluation and discussion. Her examination of the left breast revealed a near 3-4 cm mass starting at the 2 o'clock position extending to the 3 o'clock position. This was firm non-fixed with thickening further laterally extending into the axillary tail measuring [address] Ashford that the patient would benefit from neoadjuvant chemotherapy. She recommended additional staging procedures to include a PET/CT scan and bilateral breast MRIs. She discussed possible surgical options and the patient expressed a desire to proceed with bilateral mastectomies at that time. On 07/22/2015 patient underwent a PET/CT scan. This showed no metabolically active pulmonary nodules. A 2.6 x 2.4 cm FDG avid irregular mass was noted in the left breast with biopsy clip present and a maximum SUV of 15.3. Superior to that lesion was a 3.6 x 2.0 cm asymmetric oval mass with SUV max of 2.5. Multiple hypermetabolic left axillary and subpectoral lymph nodes were appreciated with the largest measuring 1.8 x 1.3 cm with the most FDG avid maximum of 15.0 has a biopsy clip next to it. There was no metabolically active hilar and mediastinal adenopathy. Abdomen and pelvis, gastrointestinal system system and musculoskeletal systems were unremarkable. An FDG avid anterior uterine myometrial mass without obvious CT correlate was seen on the unenhanced CT scan. On 07/23/2015 patient underwent bilateral breast MRIs. The right breast was without suspicious abnormalities. The left breast revealed a large area of segmental he does attributed masslike and non-mass like enhancement involving the left lower outer and a lesser degree the left upper outer quadrant extending from approximately 2 to 5 o'clock position. The extent of enhancement measures up to 9.5 cm in AP dimension with the abnormal enhancement extending up to and possibly involving the nipple. The enhancement demonstrates a mixed kinetic pattern including suspicious washout kinetics. The 2 adjacent biopsy markers were identified. There was mild left rest skin thickening mostly involving the inferior breast. Multiple abnormally enlarged lymph nodes are seen within the left axilla consistent with sosa metastasis. No obvious right axillary adenopathy appreciated no abnormal internal mammary lymph nodes are seen. Chest wall structures were negative. The patient was seen by Dr. Cho on 07/24/2014. She agreed with the recommended neoadjuvant chemotherapy consisting of Taxotere, Carboplatin,Pertuzumab and Herceptin.. Patient was set up to see a ferry operator to evaluate the uterus. The patient had had previous uterine ablations. A mass measuring 3.7 x 3.2 x 3.4 cm was appreciated which had increased in size since previous studies in 2007. Plan repeat scan in 6 months. A bone scan was performed on 2015. This showed no evidence of metastatic disease. The patient has started her systemic chemotherapy and is presently in cycle 2. She did have 1 week of the symptoms but otherwise is tolerating her systemic therapy as anticipated. She is scheduled to see Dr. Michael today for evaluation and discussion of the role of breast reconstruction following her planned bilateral mastectomy. He will discuss with her the options of tissue expansion versus TRAM flap. We were also asked to see her in referral to discuss with her the potential and likely role of adjuvant radiation following the completion of her chemotherapy and surgery. She continue follow-up with Dr. Cho and underwent systemic chemotherapy. She completed the [facility] treatment with perjeta. She now continues on Herceptin every 3 weeks. She underwent the bilateral mastectomies 12/15/2015. She had a left sentinel lymph node biopsy. This revealed no residual carcinoma. There was no cancer in the 2 lymph nodes that were evaluated. She does have arthralgias in association to Herceptin. She is being evaluated with a bone scan. Following the bilateral mastectomy she had immediate tissue expanders. These have now completely been expanded. There is some mild discomfort in the left side following the expansion. She's noticed no redness or tenderness. She noted no masses or change of the axilla. She's had no swelling of her arm. She is here today for follow-up and CT. She underwent radiation therapy. Treatment was completed 05/13/2016. She received 6240 cGy. Interim History She completed Herceptin on every 2016. She went on to have her permanent implants placed on 08/19/2016. She unfortunately developed an infection and had the left implant removed 11/15/2016. She developed sepsis and came to the emergency room on 11/14/2016 and was transferred to [facility]. She improved and was discharged home. She was on antibiotics for approximate 2 weeks following the hospitalization. She has seen the plastic surgeon in follow -up and there has been recommendation for TRAM flap reconstruction. She would need to have a 3 month time period of recovery from the prior infection. She previously had a DVT in the area of her port. Report has since been removed but recently she is had pain in her right upper arm. Medical oncology sent her for an ultrasound and she was told she had a superficial clot near her wrist. She is on Lovenox. She is also having low back pain. She has a long history of back discomfort. She is going to having a bone scan tomorrow. Allergies Coded Allergies: Codeine (Verified Allergy, Severe, chest tightness, 11/14/16) Morphine (Verified Allergy, Intermediate, Chest Tightness , 11/14/16) Home Medications Scheduled Pantoprazole (Protonix), 40 MG PO DAILY Scheduled PRN Diphenhydramine Hcl (Benadryl Allergy), 25 MG PO UD PRN for ALLERGIC REACTION Fluticasone Propionate (Nasal) (Flonase Allergy Relief), 1 SPRAY BIANCA BID PRN for ALLERGIC REACTION Loratadine (Claritin), 10 MG PO DAILY PRN for ALLERGIES Tramadol (Ultram), 50 MG PO TID PRN for Pain Review of Systems Gastrointestinal: Symptoms: WNL Oral: Symptoms: No Problems Respiratory: Symptoms: WNL Urinary: Symptoms: WNL Skin: Symptoms: No Problems Other Skin Symptoms: Skin left chest intact. Breast: Right Upper Arm Measurement: 39.0 Right Mid Arm Measurement: 24.8 Right Wrist Measurement: 15.0 Left Upper Arm Measurement: 37.0 Left Mid Arm Measurement: 24.5 Left Wrist Measurement: 14.3 Arm Dominence: Right Physical Exam Vital Signs Date Time Temp Pulse Resp B/P (MAP) Pulse Ox O2 Delivery O2 Flow Rate FiO2 12/15/16 13:43 36.9 76 12 113/76 97 Fatigue: None General Appearance: no apparent distress Eyes: normal inspection, EOMI ENT: normal ENT inspection, hearing grossly normal Neck: no adenopathy, thyroid normal Respiratory/Chest: lungs clear, no respiratory distress, no accessory muscle use Breast: Breast examination reveals implanted breast on the right. There are no masses and no axillary adenopathy. On the left there is mild hyperpigmentation and skin retraction along the incision line. There are fibrous changes of the skin. There are no distinct palpable masses of the chest wall or axilla. Using the [place] score cosmesis she has a poor outcome. Cardiovascular: regular rate, rhythm, no gallop, no murmur Extremities: no pedal edema Neurologic/Psychiatric: no motor/sensory deficits, alert, normal mood/affect Skin: warm/dry Laboratory Studies Test 11/14/16 00:00 11/14/16 13:50 11/14/16 13:59 Urine Color YELLOW Urine Appearance CLEAR (CLEAR) Urine pH 6.5 (4.5-7.5) Urine Specific [place] 1.010 (1.000-1.030) Urine Protein NEG (NEG) Urine Glucose (UA) NEG (NEG) Urine Ketones NEG (NEG) Urine Occult Blood NEG (NEG) Urine Nitrite NEG (NEG) Urine Bilirubin NEG (NEG) Urine Urobilinogen NEG (NEG) Urine Leukocyte Esterase NEG (NEG) White Blood Count 11.23 K/uL (4.8-10.8) Red Blood Count 4.10 M/uL (4.2-5.4) Hemoglobin 12.5 g/dL (12.0-16.0) Hematocrit 37.3 % (37-47) Mean Corpuscular Volume 91.0 fL (80-100) Mean Corpuscular Hemoglobin 30.5 pg (25-34) Mean Corpuscular Hemoglobin Concent 33.5 g/dl (32-36) Platelet Count 201 K/uL (130-400) Mean Platelet Volume 8.9 fL (7.4-10.4) Neutrophils (%) (Auto) 90.3 % Lymphocytes (%) (Auto) 3.2 % Monocytes (%) (Auto) 6.1 % Eosinophils (%) (Auto) 0.0 % Basophils (%) (Auto) 0.1 % Neutrophils # (Auto) 10.14 K/uL (1.4-6.5) Lymphocytes # (Auto) 0.36 K/uL (1.2-3.4) Monocytes # (Auto) 0.69 K/uL (0.11-0.59) Eosinophils # (Auto) 0.00 K/uL (0-0.5) Basophils # (Auto) 0.01 K/uL (0-0.2) RDW Standard Deviation 43.1 fL (36.4-46.3) RDW Coefficient of Variation 13.0 % (11.5-14.5) Immature Granulocyte % (Auto) 0.3 % Immature Granulocyte # (Auto) 0.03 K/uL (0.00-0.02) Prothrombin Time 10.8 SECONDS (9.0-12.0) Prothrombin Time INR 1.0 (0.9-1.1) PTT 25.4 SECONDS (21.0-31.0) Partial Thromboplastin Ratio 1.0 Sodium Level 141 mmol/L (136-145) Potassium Level 2.9 mmol/L (3.5-5.1) Chloride Level 105 mmol/L (98-107) Carbon Dioxide Level 27 mmol/L (21-32) Anion Gap 9.0 mmol/L (3-11) Blood Urea Nitrogen 14 mg/dl (7-18) Creatinine 0.66 mg/dl (0.60-1.20) Est Creatinine Clear Calc Drug Dose 93.2 ml/min Estimated GFR () 121.1 Estimated GFR (Non- 104.5 BUN/Creatinine Ratio 21.2 (10-20) Random Glucose 94 mg/dl (70-99) Calcium Level 8.8 mg/dl (8.5-10.1) Magnesium Level 1.4 mg/dl (1.8-2.4) Total Bilirubin 0.4 mg/dl (0.2-1) Aspartate Amino Transferase (AST) 15 U/L (15-37) Alanine Aminotransferase (ALT) 20 U/L (12-78) Alkaline Phosphatase 74 U/L (45-117) Total Protein 6.8 gm/dl (6.4-8.2) Albumin 3.7 gm/dl (3.4-5.0) Globulin 3.1 gm/dl (2.5-4.0) Albumin/Globulin Ratio 1.2 (0.9-2) POC Lactic Acid Venous 0.82 mmol/L (0.90-1.70) Assessment & Plan Plan: Continue follow-up with Dr. Cho, her primary care physician, and her plastic surgeon. There is discussion of a TRAM flap reconstruction in [address] Cho is following the superficial phlebitis of the right arm. Her arm measurements do show increased circumference of the right upper arm area. We discussed that she may benefit from lymphedema therapy. This cannot be implemented until there is resolution of any blood clot. I her asked to review this with Dr. Cho. She'll be having a bone scan tomorrow. We asked her to return to our office in 1 year. She may call if she has any questions or concerns in the interim. Total Time In Follow-Up I spent minutes speaking to the patient and performing examination. I spent 15 minutes reviewing information in completing this note. Copy To Wilder Michael M.D.; Osvaldo Romero MD; Martha Ashford MD; Judith Cho MD Problem Qualifiers (1) Breast cancer: Breast location: upper outer quadrant of breast Estrogen receptor status: negative Patient sex: female Laterality: left Qualified Codes: C50.412 - Malignant neoplasm of upper-outer quadrant of left female breast; Z17.1 - Estrogen receptor negative status [ER-]
== END | disposition home or self-care (01) ==
LOC: C.ONC 13:30
PROVIDERS: ATTEND Physician Assistant Medical
DX: Z08 Encounter for follow-up examination after completed treatment for malignant neoplasm (principal); Z92.3 Personal history of irradiation; Z85.3 Personal history of malignant neoplasm of breast

== ENCOUNTER → 2017-01-11 | Outpatient (CLI) | payer BC ==
--- NOTE | 2017-01-11 11:17 | DIAGNOSTIC IMAGING REPORT ---
ULTRASOUND RIGHT UPPER EXTREMITY VENOUS CLINICAL HISTORY: Right arm swelling. COMPARISON STUDY: Right upper extremity venous ultrasound dated 12/09/2016. TECHNIQUE: Real-time, grayscale, and color Doppler sonography of the deep veins of the right upper extremity is performed. Compression and augmentation were utilized. FINDINGS: There is no sonographic evidence of deep venous thrombosis identified in the right upper extremity. The right internal jugular, axillary, and brachial veins are patent and normally compressible. Normal venous waveforms and augmentation are seen within the right subclavian vein. The cephalic and basilic veins are clear. The visualized radial and ulnar veins are patent. IMPRESSION: There is no sonographic evidence of deep venous thrombosis identified in the right upper extremity. Electronically signed by: Luis M Melendez M.D. 01/11/2017 11:15 AM Dictated Date/Time: 01/11/2017 11:14 AM
== END | disposition home or self-care (01) ==
LOC: C.ULTRBC 10:26
PROVIDERS: ATTEND Internal Medicine Hematology & Oncology
DX: C50.412 Malignant neoplasm of upper-outer quadrant of left female breast (principal); Z86.718 Personal history of other venous thrombosis and embolism; I80.8 Phlebitis and thrombophlebitis of other sites

== ENCOUNTER 2017-05-30 20:51 | Emergency (ER) | payer BC, OTHER ==
[~2017-05-30] VITALS: Ht 154.9 cm; Wt 73.7 kg
[2017-05-30 20:56] VITALS: TEMP 36.6; Ht 154.9 cm; Wt 73.7 kg
[2017-05-30] MEDS ORDERED: IBUP-103 PO (21:26)
[2017-05-30 21:41] LABS: BASO % 0.2 %; BASO ABS # 0.01 K/uL (0-0.2); EOS % 2.1 %; HEMATOCRIT 38.3 % (37-47); HEMOGLOBIN 12.5 g/dL (12.0-16.0); LYMPH % 30.3 %; LYMPH ABS # 1.42 K/uL (1.2-3.4); MEAN CELL VOLUME 94.1 fL (80-100); MEAN CORPUSCULAR HEMOGLOBIN 30.7 pg (25-34); MEAN CORPUSCULAR HGB CONC 32.6 g/dl (32-36); MEAN PLATELET VOLUME 9.1 fL (7.4-10.4); MONO % 14.3 %; MONO ABS # 0.67 K/uL (0.11-0.59); NEUT % 53.1 %; NEUT ABS # 2.49 K/uL (1.4-6.5); PLATELET COUNT 223 K/uL (130-400); RED CELL DISTRIBUTION WIDTH CV 12.7 % (11.5-14.5); RED CELL DISTRIBUTION WIDTH SD 43.7 fL (36.4-46.3); WHITE BLOOD COUNT 4.69 K/uL (4.8-10.8)
[2017-05-30] MEDS ORDERED: OPTIRAY 320 IV PRN (22:15)
--- NOTE | 2017-05-30 22:19 | DIAGNOSTIC IMAGING REPORT ---
(CHEST FOR PE) ANGIO WITH CT DOSE: 373.44 mGy.cm HISTORY: 51 years-old Female presents with acute left-sided chest pain. TECHNIQUE: Multiple CTA images of the chest were obtained after the intravenous administration of 90 ml Optiray 320. Coronal and sagittal MIPS were obtained from the axial data set and were submitted for review. A dose lowering technique was utilized adhering to the principles of ALARA. COMPARISON: CTA of the chest 06/28/2008, PET CT 12/09/2015. FINDINGS: CTA: Heart is normal in size without pericardial effusion. The thoracic aorta is normal in both course and caliber without aneurysm or dissection. The imaged great vessels appear to be patent. The pulmonary arterial tree is opacified to level of the proximal segmental branches. The distal segmental and subsegmental branches are not well-seen secondary to respiratory motion and contrast bolus timing. No evidence of pulmonary embolus. There is venous opacification of multiple collateral vessels in the region of the right upper chest wall with high-grade narrowing or chronic occlusion of the right subclavian vein as seen on image 215 series 4. On prior imaging, the patient had a right subclavian [id number] catheter in place. CT CHEST: Thyroid is unremarkable. No pathologic adenopathy identified. There is no pneumothorax, pleural effusion or focal airspace consolidation identified. Subpleural groundglass opacities are noted involving the anterior segment left upper lobe suggesting areas of chronic pleural parenchymal scarring. The central airways are patent. No acute abnormality of the imaged upper abdomen. Prior left breast reconstruction. Prior right breast augmentation with pole radial fold along the lateral inferior portion of the implant. No evidence of implant rupture. The bones appear intact. IMPRESSION: 1. No pulmonary embolus or acute aortic pathology identified. 2. No lobar airspace consolidation to suggest pneumonia. 3. Postoperative changes of the bilateral breasts as above. 4. 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 On prior imaging, the patient had a right subclavian [id number] catheter in place. The above report was generated using voice recognition software. It may contain grammatical, syntax or spelling errors. Electronically signed by: Rasta Sen M.D. 05/30/2017 10:17 PM Dictated Date/Time: 05/30/2017 10:07 PM
[2017-05-30 22:22] LABS: CALCIUM 9.4 mg/dl (8.5-10.1); CREATININE 1.34 mg/dl (0.60-1.20); POTASSIUM 3.6 mmol/L (3.5-5.1)
--- NOTE | 2017-05-30 22:51 | DIAGNOSTIC IMAGING REPORT ---
L VENOUS DOPPLER UPR EXT UNIL HISTORY: 51 years-old Female LUE apin and swelling acute pain and swelling of the left upper extremity COMPARISON: CTA of the chest of same day TECHNIQUE: Multiple real-time sonographic images of the left upper extremity deep venous structures were obtained assessing grayscale appearance, color and spectral flow FINDINGS: There is normal compressibility, phasicity, augmentation and flow within the left upper extremity deep venous structures. Incidental note is made of apparent duplicated brachial arteries and veins. IMPRESSION: No sonographic evidence of deep venous thrombosis The above report was generated using voice recognition software. It may contain grammatical, syntax or spelling errors. Electronically signed by: Rasta Sen M.D. 05/30/2017 10:50 PM Dictated Date/Time: 05/30/2017 10:47 PM
[2017-05-30 23:12] VITALS: BP 150/74; PULSE 78; O2SAT 98
--- NOTE | 2017-05-30 23:22 | EMERGENCY ROOM VISIT NOTE ---
History Report prepared by Rajeev: Anita Jones Under the Supervision of: Dr. Qasim Garcia D.O. First contact with patient: 21:03 Chief Complaint: SHOULDER PAIN Stated Complaint: LEFT SHOULDER PAIN History of Present Illness The patient is a 51 year old female who presents to the Emergency Room with complaints of worsening left shoulder pain starting three weeks ago. The patient states that she had surgery 9 weeks ago at [facility]. She states that before that she had a breast implant removed and they used a piece of her own body to replace it this time. She states that she had a check-up two weeks ago and notified her surgeon about the pain. He told her that it was normal. She states that she since then has gotten worse. The patient states that the pain is in her shoulder blade, into her arm pit, and down her arm now. She states that the pain has been constant. The patient states that she has tingling in her 3 middle fingers and down her arm. The patient describes the pain similar to her previous blood clot in her right arm. She states that the pain is worse with exertion and movement. She states that it radiates and connects from her chest to her back. She describes the pain going through as a stabbing pain. She states that the pain in her armpit is a burning sensation. The patient complains of a cold with nasal congestion and cough. She denies pain with breathing. Source of History: patient Onset: three weeks ago Position: shoulder (left) Quality: tingling, burning, stabbing Timing: worsening Associated Symptoms: + cough Note: The patient complains of nasal congestion. Review of Systems See HPI for pertinent positives & negatives. A total of 10 systems reviewed and were otherwise negative. Past Medical & Surgical Medical Problems: (1) Breast cancer (2) DVT (deep venous thrombosis) (3) GERD (gastroesophageal reflux disease) (4) hx brast implant removal Surgical Problems: (1) H/O bilateral mastectomy (2) Hx of cholecystectomy (3) Hx of tubal ligation Family History Diabetes mellitus FATHER MOTHER Social History Smoking Status: Never Smoker Marital Status: Housing Status: lives with family Current/Historical Medications Scheduled PRN Ibuprofen Tab (Advil), 600 MG PO UD PRN for Pain Tramadol (Ultram), 50 MG PO TID PRN for Pain Allergies Coded Allergies: Codeine (Verified Allergy, Severe, chest tightness, 1/2/18) Morphine (Verified Allergy, Intermediate, Chest Tightness , 05/30/17) Physical Exam Vital Signs Date Time Temp Pulse Resp B/P (MAP) Pulse Ox O2 Delivery O2 Flow Rate FiO2 05/30/17 23:12 78 18 150/74 98 05/30/17 22:54 78 18 150/74 98 Room Air 05/30/17 20:56 36.6 81 18 142/72 96 Room Air Physical Exam GENERAL: Sitting up in bed holding her left shoulder, alert, no distress, non- toxic EYE EXAM: normal conjunctiva. OROPHARYNX: no exudate, no erythema, lips, buccal mucosa, and tongue normal and mucous membranes are moist NECK: supple, no nuchal rigidity, no adenopathy, non-tender LUNGS: Clear to auscultation. Normal chest wall mechanics HEART: no murmurs, S1 normal and S2 normal CHEST: acute anterior left chest wall pain tracking up to the trapezius and down posteriorly along the scapula. ABDOMEN: abdomen soft, non-tender, normo-active bowel sounds, no masses, no rebound or guarding. BACK: Back is symmetrical on inspection and there is no deformity, no midline tenderness, no CVA tenderness. SKIN: no rashes and no bruising UPPER EXTREMITIES: Left radial pulse 2/4. Gross sensations intact. Significant pain to palpation to the left humeral head and with internal and external rotation and abduction. LOWER EXTREMITIES: No pitting edema. NEURO EXAM: Normal sensorium, cranial nerves II-XII grossly intact, normal speech, no gross weakness of arms, no gross weakness of legs. Medical Decision & Procedures ER Provider Diagnostic Interpretation: Radiology results as stated below per my review and the radiologist's interpretation: (CHEST FOR PE) ANGIO WITH CT DOSE: 373.44 mGy.cm HISTORY: 51 years-old Female presents with acute left-sided chest pain. TECHNIQUE: Multiple CTA images of the chest were obtained after the intravenous administration of 90 ml Optiray 320. Coronal and sagittal MIPS were obtained from the axial data set and were submitted for review. A dose lowering technique was utilized adhering to the principles of ALARA. COMPARISON: CTA of the chest 06/28/2008, PET CT 12/09/2015. FINDINGS: CTA: Heart is normal in size without pericardial effusion. The thoracic aorta is normal in both course and caliber without aneurysm or dissection. The imaged great vessels appear to be patent. The pulmonary arterial tree is opacified to level of the proximal segmental branches. The distal segmental and subsegmental branches are not well-seen secondary to respiratory motion and contrast bolus timing. No evidence of pulmonary embolus. There is venous opacification of multiple collateral vessels in the region of the right upper chest wall with high-grade narrowing or chronic occlusion of the right subclavian vein as seen on image 215 series 4. On prior imaging, the patient had a right subclavian [id number] catheter in place. CT CHEST: Thyroid is unremarkable. No pathologic adenopathy identified. There is no pneumothorax, pleural effusion or focal airspace consolidation identified. Subpleural groundglass opacities are noted involving the anterior segment left upper lobe suggesting areas of chronic pleural parenchymal scarring. The central airways are patent. No acute abnormality of the imaged upper abdomen. Prior left breast reconstruction. Prior right breast augmentation with pole radial fold along the lateral inferior portion of the implant. No evidence of implant rupture. The bones appear intact. IMPRESSION: 1. No pulmonary embolus or acute aortic pathology identified. 2. No lobar airspace consolidation to suggest pneumonia. 3. Postoperative changes of the bilateral breasts as above. 4. 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 On prior imaging, the patient had a right subclavian [id number]-x-[id number] catheter in place. The above report was generated using voice recognition software. It may contain grammatical, syntax or spelling errors. Electronically signed by: Rasta Sen M.D. 05/30/2017 10:17 PM Dictated Date/Time: 05/30/2017 10:07 PM L VENOUS DOPPLER UPR EXT UNIL HISTORY: 51 years-old Female LUE apin and swelling acute pain and swelling of the left upper extremity COMPARISON: CTA of the chest of same day TECHNIQUE: Multiple real-time sonographic images of the left upper extremity deep venous structures were obtained assessing grayscale appearance, color and spectral flow FINDINGS: There is normal compressibility, phasicity, augmentation and flow within the left upper extremity deep venous structures. Incidental note is made of apparent duplicated brachial arteries and veins. IMPRESSION: No sonographic evidence of deep venous thrombosis The above report was generated using voice recognition software. It may contain grammatical, syntax or spelling errors. Electronically signed by: Rasta Sen M.D. 05/30/2017 10:50 PM Dictated Date/Time: 05/30/2017 10:47 PM Laboratory Results 05/30/17 21:30 Red Blood Count 4.07, Mean Corpuscular Volume 94.1, Mean Corpuscular Hemoglobin 30.7, Mean Corpuscular Hemoglobin Concent 32.6, Mean Platelet Volume 9.1, Neutrophils (%) (Auto) 53.1, Lymphocytes (%) (Auto) 30.3, Monocytes (%) (Auto) 14.3, Eosinophils (%) (Auto) 2.1, Basophils (%) (Auto) 0.2, Neutrophils # (Auto ) 2.49, Lymphocytes # (Auto) 1.42, Monocytes # (Auto) 0.67, Eosinophils # (Auto ) 0.10, Basophils # (Auto) 0.01 05/30/17 21:30 Test 05/30/17 21:30 White Blood Count 4.69 K/uL (4.8-10.8) Red Blood Count 4.07 M/uL (4.2-5.4) Hemoglobin 12.5 g/dL (12.0-16.0) Hematocrit 38.3 % (37-47) Mean Corpuscular Volume 94.1 fL (80-100) Mean Corpuscular Hemoglobin 30.7 pg (25-34) Mean Corpuscular Hemoglobin Concent 32.6 g/dl (32-36) Platelet Count 223 K/uL (130-400) Mean Platelet Volume 9.1 fL (7.4-10.4) Neutrophils (%) (Auto) 53.1 % Lymphocytes (%) (Auto) 30.3 % Monocytes (%) (Auto) 14.3 % Eosinophils (%) (Auto) 2.1 % Basophils (%) (Auto) 0.2 % Neutrophils # (Auto) 2.49 K/uL (1.4-6.5) Lymphocytes # (Auto) 1.42 K/uL (1.2-3.4) Monocytes # (Auto) 0.67 K/uL (0.11-0.59) Eosinophils # (Auto) 0.10 K/uL (0-0.5) Basophils # (Auto) 0.01 K/uL (0-0.2) RDW Standard Deviation 43.7 fL (36.4-46.3) RDW Coefficient of Variation 12.7 % (11.5-14.5) Immature Granulocyte % (Auto) 0.0 % Immature Granulocyte # (Auto) 0.00 K/uL (0.00-0.02) Anion Gap 5.0 mmol/L (3-11) Est Creatinine Clear Calc Drug Dose 46.6 ml/min Estimated GFR () 53.8 Estimated GFR (Non- 46.4 BUN/Creatinine Ratio 16.5 (10-20) Calcium Level 9.4 mg/dl (8.5-10.1) Troponin I < 0.015 ng/ml (0-0.045) Laboratory results per my review. ECG Indication: back/shoulder pain Rate (beats per minute): 73 Rhythm: sinus rhythm Findings: no acute ischemic change, no ectopy, other (normal axis) ED Course ED COURSE: Vital signs were reviewed and showed normal vitals. The patients medical record was reviewed The above diagnostic studies were performed and reviewed. ED treatments and interventions as stated above. 4: The patient was evaluated in room C9. A complete history and physical examination was performed. 3: I reevaluated the patient and she was doing okay. 2234: I discussed the patient's case with Dr. Snow- Vascular Surgeon. He states that all she needs are compressions and will have her follow up as an outpatient. 2255: Upon reevaluation, the patient is resting comfortably.I discussed my findings with the patient and she understands and agrees with the treatment plan. The patient will be discharged home. Based on the patients age, coexisting illnesses, exam and lab findings the decision to treat as an outpatient was made. The patient remained stable while under my care. The patient appeared well at the time of discharge. Medical Decision Differential diagnosis: Etiologies such as DVT, musculoskeletal, infection, joint effusion, trauma, lymphedema, idiopathic, CHF, as well as others were entertained. Patient is a 51-year-old female who presents to ER for left chest wall and upper back pain. On exam patient has clear reproducible anterior and upper scapular pain tracking down through left arm. She is completely neurovascularly intact in left upper extremity. Pain is not cardiac in nature as it is clearly reproducible. Troponin was negative with pain present greater than 8 hours. EKG was unremarkable. CBC and BMP were unremarkable. Patient was concerned that this could be a PE as she has had this before the past. CT PE was negative. Ultrasound left upper extremity was negative. On the CT PE it did show stenosis of the right subclavian. No clots. She did have a port located in that side previously. I discussed with vascular. Patient will follow-up as an outpatient. Nothing to do acutely at this time as she is completely asymptomatic. Discussed with Pt concerning signs and symptoms to watch out for. Pt was instructed to follow up with their PCP and discussed with the patient their option to return to the ED at anytime for persistent or worsening symptoms. The appropriate anticipatory guidance and out-patient management, including indications for return to the emergency department, were explained at length to the patient and understood. Medication Reconcilliation Current Medication List: was personally reviewed by me Blood Pressure Screening Patient's blood pressure: Normal blood pressure Blood pressure disposition: Did not require urgent referral Consults Time Called: 2229 Consulting Physician: Dr. Snow- Vascular Surgeon Returned Call: [phone] I discussed the patient's case with Dr. Snow- Vascular Surgeon. He states that all she needs are compressions and will have her follow up as an outpatient. Impression Primary Impression: Left-sided chest wall pain Additional Impression: Subclavian vein stenosis, right Scribe Attestation The scribe's documentation has been prepared under my direction and personally reviewed by me in its entirety. I confirm that the note above accurately reflects all work, treatment, procedures, and medical decision making performed by me. Departure Information Dispostion Home / Self-Care Referrals Osvaldo Romero MD (PCP) Forms HOME CARE DOCUMENTATION FORM, IMPORTANT VISIT INFORMATION Patient Instructions My [facility] Additional Instructions Please follow up with your primary care doctor with in the next 24 hours. Any worsening of your symptoms, please return to the ED immediately. This includes any fevers greater than 100.4, worsening pain, chest pain, shortness breath, persistent nausea, vomiting, unable to eat or drink, or any other concerning signs or symptoms from your standpoint. Please take Tylenol or Motrin as needed for pain. Please follow up with vascular surgery and call them tomorrow morning to set up an appointment. Problem Qualifiers
[2017-05-31 01:35] LABS: ISTAT CREATININE 1.4 mg/dl (0.6-1.3); ISTAT IONIZED CALCIUM 1.15 mmol/l (1.12-1.32); ISTAT POTASSIUM 3.7 mEq/L (3.3-5.0)
== END 2017-05-30 23:13 | disposition home or self-care (01) ==
LOC: C.EDB 20:52 → C.EDC 23:13
DX: R07.89 Other chest pain (principal); I87.1 Compression of vein; Z98.890 Other specified postprocedural states; Z85.3 Personal history of malignant neoplasm of breast; Z86.718 Personal history of other venous thrombosis and embolism; K21.9 Gastro-esophageal reflux disease without esophagitis; Z90.49 Acquired absence of other specified parts of digestive tract; Z98.51 Tubal ligation status; Z90.13 Acquired absence of bilateral breasts and nipples; Z83.3 Family history of diabetes mellitus

== ENCOUNTER → 2017-07-04 | Outpatient (CLI) | payer OTHER ==
[~2017-07-04] MED LIST changes: -CLR10 PO; -DIPH25CA65 PO; -FLUT0.15 NAE; +IBUP-103 PO; -PANT40TA PO
== END | disposition home or self-care (01) ==
LOC: C.PAPS 08:31
PROVIDERS: ATTEND Obstetrics & Gynecology
DX: Z12.4 Encounter for screening for malignant neoplasm of cervix (principal); R87.610 Atypical squamous cells of undetermined significance on cytologic smear of cervix (ASC-US); Z11.51 Encounter for screening for human papillomavirus (HPV)

== ENCOUNTER → 2017-12-19 | Outpatient (CLI) | payer OTHER ==
[~2017-12-19] MED LIST changes: +FLUT0.15
[2017-12-19 13:25] VITALS: BP 110/70; PULSE 71; TEMP 36.5; O2SAT 95
--- NOTE | 2017-12-19 17:00 | Radiation Oncology Follow-Up ---
Radiation Oncology Follow-Up Date of Visit Dec 19, 2017. Reason For Visit Annual follow-up Radiation Completion Date 05/13/16 Diagnosis (1) Breast cancer Status: Resolved Onset Date: 07/06/2015 Histology Subtype: Ductal Stage: lll (C) Permanent Comment: Left breast discomfort Abnormal mammogram revealing left upper outer quadrant masses Status post ultrasound-guided biopsies revealing infiltrating ductal carcinoma upper outer quadrant Positive left axillary lymph node biopsy Estrogen receptor negative, progesterone receptor negative, HER-2/mahogany positive Clinical stage T3 N1M0 by MRI Status post chemotherapy with TCH plus Pertuzumab Ongoing treatment with Herceptin Status post bilateral mastectomies with sentinel lymph node biopsy on the left 12/15/2015 Placement of tissue expanders Stage ypT0 ypN0 M0 Status post completion of radiation therapy 05/13/2016 received 6240 cGy Last Edited By: Jaycee Pardo on May 26, 2016 13:51 History of Present Illness Ms. Saha has a remote family history of breast cancer. The patient's paternal grandmother was diagnosed with bilateral breast cancer treated with bilateral mastectomies and chemotherapy and radiation. Her mother from heart complications and she has 3 sisters 2 surviving without history of left breast cancer. She has noted however a sensation of discomfort in the left chest wall region for several years. Mammogram from 09/02/2011, bilateral screening, showed no mammographic evidence of malignancy. Repeat bilateral screening mammogram on 09/03/2012 also revealed no mammographic evidence of malignancy. On 09/05/2013 bilateral digital screening mammograms were performed. An indeterminant asymmetry was appreciated in the left breast with additional views recommended. A unilateral left digital diagnostic mammogram was performed on 09/12/2013. An oval high density asymmetry was again noted in the left breast at the 1:00 posterior depth that was felt to have decreased in size. A repeat in one year was recommended. The patient states that at this point she was becoming frustrated and delayed her recommended repeat screening mammogram scheduled for August 2014. Ultimately she did agree to proceed with bilateral digital screening mammograms on 06/25/2015. This unfortunately showed a newly visualized 1.0 cm mass in the left upper outer quadrant as well as a possible 0.8 cm mass seen more anteriorly on the cc views. Spot compression views and ultrasound were recommended. On 06/30/2015 patient underwent a unilateral left digital diagnostic mammogram and targeted left breast ultrasound. This showed a 1.9 x 2.3 cm cluster of pleomorphic microcalcifications in the upper outer middle one third of the left breast which were new compared to prior mammograms. The total synthesis Spot compression views demonstrated persistence of a dominant 1.1 cm mass in the left breast 3 o'clock position. Real time ultrasound was performed of the left upper outer quadrant. At the 2 o'clock position 1 cm from the nipple was noted a rounded hypoechoic solid mass measuring 0.8 x 0.9 x 0.9 cm. A second hypoechoic solid mass deep to the first at the 3 o'clock position of the left breast was noted to centimeters in the nipple measuring 1.6 x 0.8 x 1.3 cm. An ill-defined hypoechoic tissue was noted at the 3 o'clock position of the left breast 3 cm from the nipple measuring 1.5 x 3.0 cm. Evaluation of the left axilla revealed an enlarged lymph node with thickened cortex measuring 1.6 cm in length suspicious for metastatic disease. Ultrasound core biopsy was recommended. On 07/06/2015 patient underwent an ultrasound-guided core biopsy of the left breast mass 2 o'clock position, calcifications hypoechoic tissues and abnormal left axillary lymph node. The biopsy of the breast mass at the 2 o'clock position confirmed an infiltrating ductal carcinoma [place] grade 3 of 3 without lymphovascular invasion. Estrogen receptors were negative (0%). Progesterone receptors were negative (0%). HER-2/mahogany overexpression was +3+ (>90%, strong). Biopsy of the adjacent calcifications hypoechoic tissue also revealed infiltrating ductal carcinoma Artem grade 3 with evidence of high-grade DCIS solid with focal noncontributory necrosis. Biopsy of the left axillary lymph node revealed metastatic carcinoma with similar histologic features to that of the core breast biopsy. Case: [id number]. The patient was seen on 07/15/[address] Martha Ashford for surgical evaluation and discussion. Her examination of the left breast revealed a near 3-4 cm mass starting at the 2 o'clock position extending to the 3 o'clock position. This was firm non-fixed with thickening further laterally extending into the axillary tail measuring [address] Ashford that the patient would benefit from neoadjuvant chemotherapy. She recommended additional staging procedures to include a PET/CT scan and bilateral breast MRIs. She discussed possible surgical options and the patient expressed a desire to proceed with bilateral mastectomies at that time. On 07/22/2015 patient underwent a PET/CT scan. This showed no metabolically active pulmonary nodules. A 2.6 x 2.4 cm FDG avid irregular mass was noted in the left breast with biopsy clip present and a maximum SUV of 15.3. Superior to that lesion was a 3.6 x 2.0 cm asymmetric oval mass with SUV max of 2.5. Multiple hypermetabolic left axillary and subpectoral lymph nodes were appreciated with the largest measuring 1.8 x 1.3 cm with the most FDG avid maximum of 15.0 has a biopsy clip next to it. There was no metabolically active hilar and mediastinal adenopathy. Abdomen and pelvis, gastrointestinal system system and musculoskeletal systems were unremarkable. An FDG avid anterior uterine myometrial mass without obvious CT correlate was seen on the unenhanced CT scan. On 07/23/2015 patient underwent bilateral breast MRIs. The right breast was without suspicious abnormalities. The left breast revealed a large area of segmental he does attributed masslike and non-mass like enhancement involving the left lower outer and a lesser degree the left upper outer quadrant extending from approximately 2 to 5 o'clock position. The extent of enhancement measures up to 9.5 cm in AP dimension with the abnormal enhancement extending up to and possibly involving the nipple. The enhancement demonstrates a mixed kinetic pattern including suspicious washout kinetics. The 2 adjacent biopsy markers were identified. There was mild left rest skin thickening mostly involving the inferior breast. Multiple abnormally enlarged lymph nodes are seen within the left axilla consistent with sosa metastasis. No obvious right axillary adenopathy appreciated no abnormal internal mammary lymph nodes are seen. Chest wall structures were negative. The patient was seen by Dr. Cho on 07/24/2014. She agreed with the recommended neoadjuvant chemotherapy consisting of Taxotere, Carboplatin,Pertuzumab and Herceptin.. Patient was set up to see a research food technologist to evaluate the uterus. The patient had had previous uterine ablations. A mass measuring 3.7 x 3.2 x 3.4 cm was appreciated which had increased in size since previous studies in 2007. Plan repeat scan in 6 months. A bone scan was performed on 2015. This showed no evidence of metastatic disease. The patient has started her systemic chemotherapy and is presently in cycle 2. She did have 1 week of the symptoms but otherwise is tolerating her systemic therapy as anticipated. She is scheduled to see Dr. Michael today for evaluation and discussion of the role of breast reconstruction following her planned bilateral mastectomy. He will discuss with her the options of tissue expansion versus TRAM flap. We were also asked to see her in referral to discuss with her the potential and likely role of adjuvant radiation following the completion of her chemotherapy and surgery. She continue follow-up with Dr. Cho and underwent systemic chemotherapy. She completed the [facility] treatment with perjeta. She now continues on Herceptin every 3 weeks. She underwent the bilateral mastectomies 12/15/2015. She had a left sentinel lymph node biopsy. This revealed no residual carcinoma. There was no cancer in the 2 lymph nodes that were evaluated. She does have arthralgias in association to Herceptin. She is being evaluated with a bone scan. Following the bilateral mastectomy she had immediate tissue expanders. These have now completely been expanded. There is some mild discomfort in the left side following the expansion. She's noticed no redness or tenderness. She noted no masses or change of the axilla. She's had no swelling of her arm. She is here today for follow-up and CT. She underwent radiation therapy. Treatment was completed 05/13/2016. She received 6240 cGy. Interim History She has noted change to her left shoulder over the past 2 weeks. There is a firm nodular area at the end of the clavicle. She denies any associated pain. There is been no changes of the overlying skin. 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 She did recently undergo surgery to the left reconstructed breast for a slight revision. This is healed well. She had undergone recheck scanning through medical oncology in June. There was an issue found in the proximal left humerus. She had a bone scan that was negative. She also saw orthopedics who felt that this was not an issue. She has pain in the shoulder with range of motion. This is not related to the new firm nodule she has noticed. Allergies Coded Allergies: Codeine (Verified Allergy, Severe, chest tightness, 05/30/17) Morphine (Verified Allergy, Intermediate, Chest Tightness , 05/30/17) Home Medications Scheduled Fluticasone Propionate (Nasal) (Flonase Allergy Relief), 1 SPRAY NA DAILY Scheduled PRN Ibuprofen Tab (Advil), 600 MG PO UD PRN for Pain Tramadol (Ultram), 50 MG PO TID PRN for Pain Review of Systems Gastrointestinal: Symptoms: WNL Oral: Symptoms: No Problems Respiratory: Symptoms: WNL Urinary: Symptoms: WNL Skin: Symptoms: Faint Erythema Breast: Right Upper Arm Measurement: 35.7 Right Mid Arm Measurement: 23.6 Right Wrist Measurement: 15.0 Left Upper Arm Measurement: 37.0 Left Mid Arm Measurement: 24.4 Left Wrist Measurement: 14.5 Arm Dominence: Right Patient Cosmetic Evaluation: Good Physical Exam Vital Signs Date Time Temp Pulse Resp B/P (MAP) Pulse Ox O2 Delivery O2 Flow Rate FiO2 12/19/17 13:25 36.5 71 16 110/70 95 Fatigue: None General Appearance: no apparent distress Eyes: normal inspection, EOMI ENT: normal ENT inspection, hearing grossly normal Neck: supple, no adenopathy, thyroid normal Respiratory/Chest: lungs clear, no respiratory distress, no accessory muscle use Breast: Breast examination reveals status post bilateral breast reconstruction. There is a TRAM flap on the left. There are no masses or tenderness and no axillary adenopathy bilaterally. Using the [place] score cosmesis she has a good outcome. Cardiovascular: regular rate, rhythm, no gallop, no murmur Extremities: non-tender, + pertinent finding (There is a palpable bony prominence of the left shoulder at the distal clavicle. In comparison it is felt this is similar to the right. The prominence is noted because of decreased muscularity in the left shoulder. The area is nontender. She does have decreased range of motion of the left shoulder.) Neurologic/Psychiatric: no motor/sensory deficits, alert, normal mood/affect Skin: warm/dry Pain Management Patient Reports Pain: Yes Initial Pain Intensity: 2.0 Pain Management Plan This is of the low back. She also has a 3.0 pain level in the left shoulder. She does not use any regular [id number] or prescriptive medications. Laboratory Laboratory Results: not applicable Pathology Pathology Results: were reviewed, and pertinent findings noted in HPI Imaging Imaging Studies: were reviewed, pending (X-ray was ordered of the left shoulder ) Imaging Comments She had a bone scan September 01, 2017 no focal uptake of the left humerus head or osseous metastasis. Decreased uptake over the ethmoidal air cells compared to the prior examination. Degenerative uptake in the feet. Assessment & Plan Plan: The patient was seen and examined by Dr. Rivas. It is felt that the nodularity is a prominence of the clavicle due to decreased musculature in the shoulder. An x-ray will be obtained to ensure no changes of the distal clavicle. She will continue regular follow-up with medical oncology, plastic surgery, her breast surgeon, medical oncology, and her primary care physician. She will be notified as the results of the x-ray. We asked her to return to our office in 1 year. She may call if she has any questions or concerns in the interim. Total Time In Follow-Up I spent 20 minutes speaking to the patient in performing examination. I spent 15 minutes reviewing information and completing this note. AK Copy To Wilder Michael M.D.; Osvaldo Romero MD; Martha Ashford MD; Judith Cho MD Problem Qualifiers (1) Breast cancer: Breast location: upper outer quadrant of breast Estrogen receptor status: negative Patient sex: female Laterality: left Qualified Codes: C50.412 - Malignant neoplasm of upper-outer quadrant of left female breast; Z17.1 - Estrogen receptor negative status [ER-]
== END | disposition home or self-care (01) ==
LOC: C.ONC 12:48
PROVIDERS: ATTEND Physician Assistant Medical
DX: Z08 Encounter for follow-up examination after completed treatment for malignant neoplasm (principal); Z92.3 Personal history of irradiation; Z85.3 Personal history of malignant neoplasm of breast